=== PATIENT | female | born 1945 | race Caucasian/White ===

== ENCOUNTER 2017-05-08 09:01 | Outpatient (CLI) | payer MEDICARE ==
--- NOTE | 2017-05-08 10:26 | MMO ---
BILATERAL DIGITAL SCREENING MAMMOGRAMS: HISTORY: This 72-year-old female presents for digital screening mammography. COMPARISON: 01/28/15, 05/26/13, 05/08/12. This patient's mammogram is interpreted with the assistance of computer-aided detection. FINDINGS: Scattered areas of fibroglandular density are noted bilaterally. Stable typically benign calcificati ons. Stable left intramammary lymph node. Stable-appearing prosthesis with some fairly extensive ca lcific fibrous capsules. Focal stable outpouching of the inner aspect of the left breast prosthesis dating back to 2012. IMPRESSION: BI-RADS category 2, benign findings. Continued routine screening. POS: [facility]
== END 2017-05-08 09:02 | disposition home or self-care (01) ==
LOC: SCSMAMMO 09:01
PROVIDERS: ATTEND Family Medicine
DX: Z12.31 Encounter for screening mammogram for malignant neoplasm of breast (principal)
CPT/HCPCS: 77067

== ENCOUNTER 2018-05-19 09:18 | Outpatient (CLI) | payer MEDICARE ==
--- NOTE | 2018-05-20 08:54 | MMO ---
BILATERAL SCREENING MAMMOGRAM: HISTORY: A 73-year-old female. Routine screening mammography. History of breast augmentation. COMPARISON: 05/08/2017, 01/28/2015, 05/08/2012. TECHNIQUE: CC and MLO views of both breasts are submitted for interpretation. Images are obtained with implants present and implants displaced. FINDINGS: Breasts are composed of scattered fibroglandular tissue. Bilaterally, no suspicious dominant mass, a rchitectural distortion, or suspicious calcifications. Benign-appearing calcifications of both breas ts. Stable intramammary lymph node in the left breast. IMPRESSION: BI-RADS category 2, benign findings. RECOMMENDATION: Annual mammogram. BIRADS 2: Benign Finding(s) Routine annual screening mammography (for women over age 40) POS: [facility]
== END 2018-05-19 09:19 | disposition home or self-care (01) ==
LOC: SCSMAMMO 09:18
PROVIDERS: ATTEND Family Medicine
DX: Z12.31 Encounter for screening mammogram for malignant neoplasm of breast (principal)
CPT/HCPCS: 77067

== ENCOUNTER 2018-09-04 13:55 | Observation (INO) | payer MEDICARE ==
--- NOTE | 2018-09-04 14:36 | CT ---
Exam: Head CT without contrast HISTORY: Dizziness. Chest pain. COMPARISON: none FINDINGS: Hemorrhage: No intraparenchymal hemorrhage or extra-axial hematoma. Brain parenchyma: Cortical st-white matter differentiation is preserved. No mass effect or midline shift. Basilar cisterns are patent.Nonspecific subcortical white matter hypodensity along the right frontal centrum semiovale. No associated mass effect.. Ventricular system: Ventricles and sulci are patent and symmetric. Calvarium: Intact. Sinuses and mastoid air cells: Adequate aeration. IMPRESSION: 1. No acute intracranial process. 2. Nonspecific subcortical white matter hypodensity along the anterior left centrum semiovale. If the re is concern, nonemergent brain MRI can be performed with and without gadolinium administration.
[2018-09-04 14:45] LABS: Mean Corpuscular Hemoglobin 41.2 pg (27.0-31.0); Mean Platelet Volume 7.2 fL (7.4-10.4); Platelet Count 270 thou/uL (130-400); RBC Distribution Width 12.1 % (11.5-14.5); Red Blood Cell (RBC) Count 3.16 mill/uL (4.20-5.40); White Blood Cell (WBC) Count 7.3 thou/uL (4.8-10.8)
--- NOTE | 2018-09-04 14:56 | RAD ---
Exam: Chest one view HISTORY:Chest pain. Comparison: None. FINDINGS: Cardiac silhouette: Normal Pulmonary vessels: Normal Costophrenic angles: Clear LUNGS: No masses or consolidation. Pneumothorax: None Osseous abnormalities: None IMPRESSION: No acute cardiopulmonary process.
[2018-09-04 15:04] LABS: #Eosinphils 0.1 thou/uL (0.0-0.7); #Lymphocytes 2.3 thou/uL (1.20-3.40); #Monocytes 0.2 thou/uL (0.11-0.59); #Neutrophils 4.6 thou/uL (1.40-6.50); %Basophils 0.5 % (0.0-1.0); %Eosinophils 1.7 % (0.0-10.0); %Lymphocytes 31.7 % (21.0-51.0); %Monocytes 3.2 % (0.0-10.0); %Neutrophils 62.8 % (42.0-75.0); MDiff Complete? YES; Macrocytosis SLIGHT = 6-15 cells (100X) (0-5/hpf); Platelet Morphology Comment Appears Adequate; Poikilocytosis SLIGHT = 6-15 cells (100X) (0-5/hpf)
[2018-09-04 15:07] LABS: ALT (SGPT) 19 U/L (8-55); AST (SGOT) 20 U/L (5-34); Albumin 4.3 g/dL (3.4-4.8); Alkaline Phosphatase 84 U/L (40-150); Anion Gap 12 mmol/L (10-20); BUN (Urea Nitrogen) 23 mg/dL (9.8-20.1); Bilirubin, Total 1.1 mg/dL (0.2-1.2); Calc. Creatinine Clearance 0 mL/min (70-130); Calcium 9.6 mg/dL (7.8-10.44); Carbon Dioxide 26 mmol/L (23-31); Chloride 105 mmol/L (98-107); Estimated GFR-MDRD 80; Globulin 1.8 g/dL (2.4-3.5); Glucose 127 mg/dL (83-110); Lipase 10 U/L (8-78); Potassium 3.5 mmol/L (3.5-5.1); Protein, Total 6.1 g/dL (6.0-8.3); Sodium 139 mmol/L (136-145)
[2018-09-04] MEDS ORDERED: Aspirin Chewable 81 MG TAB ONE (17:33)
[2018-09-04 18:29] VITALS: BMI 27.4
[2018-09-04] MEDS ORDERED: Acetaminophen 325 MG TAB PO PRN (18:33)
[2018-09-04 20:05] LABS: Troponin I Less than 0.010 ng/mL (< 0.028)
[2018-09-04] MEDS ORDERED: Lisinopril/Hydrochlorothiazide 10 mg/12.5 mg Tablet PO SCH (21:00)
[2018-09-04 23:07] LABS: Troponin I Less than 0.010 ng/mL (< 0.028)
--- NOTE | 2018-09-05 02:42 | HP ---
CHIEF COMPLAINT: Low heart rate. HISTORY OF PRESENT ILLNESS: The patient is a very pleasant 73-year-old female with a history of myelodysplastic syndrome, hypertension, hypercholesterolemia, who presents to the hospital with complaints of low heart rate. The patient stated that about 3 weeks ago, she had some dental oral surgery and during that whole week her blood pressure was significantly elevated. The patient states that she does have a p.r.n. clonidine, which she uses. She has used a total of 3 of clonidine in the past 3 weeks. The patient states, however, she also has been having feelings of dizziness, nausea, confusion, fatigue and also has been noticing some gait instability. The patient initially attributed those symptoms to her myeloproliferative disease since initially she had those symptoms before she was diagnosed with her myeloproliferative disease. The patient actually did see her oncologist last on Saturday, who stated that from their standpoint, she appeared to be stable. However, was noted to have bradycardia. At this time, patient has been monitoring her heart rate and today her heart rate was 43, so she came into the ER for further evaluation. The patient also states that her symptoms have become progressively worst. The patient also states that for the past 3 or 4 months, she has been noticing whenever she goes to sleep, she can feel her heart beat is very strong, not necessarily fast; however felt very that it was very strong. The patient did not do anything about it. She just would fall asleep and then would forget about it. PAST MEDICAL HISTORY: She has a history of myeloproliferative disease, hypertension, hypercholesterolemia, depression and TIA. PAST SURGICAL HISTORY: She has had some cataract surgery. FAMILY HISTORY: Brother had cardiomyopathy and stroke. SOCIAL HISTORY: She is a former smoker. She drinks 1-2 glasses of wine a day. No drug use and she is a full code and lives by herself. REVIEW OF SYSTEMS: All negative for the ones mentioned above in HPI. PHYSICAL EXAMINATION: VITAL SIGNS: Are as of the following; temperature of 98.1, 52, 12, 94% on room air, 147/66. ALLERGIES: SHE HAS NO KNOWN DRUG ALLERGIES. MEDICATIONS: She takes: 1. Hydroxyurea. 2. Lisinopril. 3. Atorvastatin. 4. Buspirone. 5. She takes p.r.n. clonidine as needed. ASSESSMENT AND PLAN: The patient is a very pleasant 73-year-old female who presents to the hospital with complaints of bradycardia. 1. Symptomatic bradycardia could be secondary to cardiac related causes versus intrinsic versus medications. I will also check a TSH on this patient. Upon reviewing her medications, she does not seem to be on any medications that would cause bradycardia. Her EKG appears to be just sinus bradycardia. She has never really had any cardiac workup. She does have a history of hypertension, high cholesterol, anemia, and she was a former smoker. It could be in terms of something in intrinsic versus some coronary disease that could be causing her to bradycardic. At this time, I will trend her troponins. I will keep her n.p.o. after midnight. I will consult Cardiology for further evaluation. 2. Hypertension. I will continue her lisinopril. 3. History of myeloproliferative disease. I will continue her hydroxyurea. 4. History of depression. I will continue her buspirone. Thank you very much. Job ID: [id number]
[2018-09-05] MEDS: HYDROXYUREA 500 MG PO SCH ×2 (03:43→21:17)
[2018-09-05 06:02] LABS: Anion Gap 10 mmol/L (10-20); BUN (Urea Nitrogen) 20 mg/dL (9.8-20.1); Calc. Creatinine Clearance 98 mL/min (70-130); Calcium 9.1 mg/dL (7.8-10.44); Carbon Dioxide 27 mmol/L (23-31); Chloride 107 mmol/L (98-107); Estimated GFR-MDRD Greater than 90; Glucose 95 mg/dL (83-110); Potassium 3.8 mmol/L (3.5-5.1)
[2018-09-05 06:20] LABS: #Basophils 0.1 thou/uL (0.0-0.2); #Eosinphils 0.2 thou/uL (0.0-0.7); #Lymphocytes 2.7 thou/uL (1.20-3.40); #Monocytes 0.3 thou/uL (0.11-0.59); #Neutrophils 4.8 thou/uL (1.40-6.50); %Basophils 0.8 % (0.0-1.0); %Eosinophils 2.6 % (0.0-10.0); %Monocytes 4.1 % (0.0-10.0); %Neutrophils 59.5 % (42.0-75.0); Hemoglobin 12.5 g/dL (12.0-16.0); Mean Corpuscular HGB CONC 34.6 g/dL (32.0-36.0); Mean Corpuscular Hemoglobin 39.9 pg (27.0-31.0); Mean Platelet Volume 7.6 fL (7.4-10.4); Platelet Count 241 thou/uL (130-400); RBC Distribution Width 12.3 % (11.5-14.5); RBC Morphology Normal; Red Blood Cell (RBC) Count 3.13 mill/uL (4.20-5.40); White Blood Cell (WBC) Count 8.1 thou/uL (4.8-10.8)
[2018-09-05 06:27] LABS: Sodium 140 mmol/L (136-145)
--- NOTE | 2018-09-05 08:32 | MRI ---
Exam: Brain MRI without contrast HISTORY: Gait instability. Abnormal CT. COMPARISON: None FINDINGS: Calvarial marrow signal intensity: Appropriate T1 signal Gradient echo sequence: No hemorrhage Brain parenchyma: No mass, mass effect or midline shift. Brain volume, age-appropriate. Cortical st-white matter differentiation: Preserved Restricted diffusion: Central arterial flow voids are maintained. Absent restricted diffusion White matter signal intensities: T2, FLAIR white matter hyperintensities due to chronic small vessel ischemic changes. The previously noted left frontal centrum semiovale white matter hypodensity has corresponding T2 and FLAIR hyperintensity likely represent a focus of chronic small vessel ischemic c hange. Sinuses: Adequate aeration of the paranasal sinuses and mastoid air cells. IMPRESSION: 1. Absent restricted diffusion. No acute infarct 2. Chronic small vessel ischemic changes of the white matter. This MR finding corresponds to recent C T finding.
[2018-09-05] MEDS ORDERED: Bupropion 150 MG XL TAB PO SCH (09:00)
[2018-09-05] MEDS ORDERED: Lisinopril/Hydrochlorothiazide 20 mg/12.5 mg Tablet PO SCH ×2 (09:00)
[2018-09-05] MEDS ORDERED: Atorvastatin Calcium 20 MG TAB PO SCH (09:00)
[2018-09-05] MEDS: LIPITOR 20 MG PO SCH (09:43)
[2018-09-05] MEDS: Lisinopril/Hydrochlorothiazide 10 mg/12.5 mg Tablet PO SCH (09:44)
[2018-09-05] MEDS: Bupropion 150 MG SR TAB PO SCH (09:44)
[2018-09-05] MEDS: Enoxaparin Sodium 40 MG/0.4 ML SYRINGE SC SCH (09:47)
[2018-09-05] MEDS ORDERED: Ondansetron PF 4 MG/2 ML Vial IVP PRN (11:11)
--- NOTE | 2018-09-05 12:56 | CON ---
DATE OF CONSULTATION: 09/05/2018 INDICATION FOR CONSULTATION: A 73-year-old female with dizziness and bradycardia. HISTORY OF PRESENT ILLNESS: This is a very pleasant 73-year-old female, who is known to us for last 2 to 3 weeks. She has been complaining of some dizziness, occasional chest discomfort, and nausea. She was seen in the emergency room, was found to have significant bradycardia, heart rates in the 30s and 40s. She has portrayed with heart rate in the 70s at times. She describes some dull ache while she is in the emergency room, and says it is 7/10. She denied any chest pain significantly to me. She has had no history of a previous coronary artery disease that we are aware of. She also states she may have had a slight fever recently and she has been complaining of some fatigue. She did undergo some oral surgery a couple of weeks ago after being seen by the dentist, but apparently this is all resolved. She has also had blood pressure that was elevated in the 100 to 190s, but at this time is now pretty much relatively stable. Yesterday, she said she felt like she was going to pass out, but she began to become somewhat disoriented, but she did not have any mary syncopal episodes and has not had any syncope. PAST MEDICAL HISTORY: Significant for mild peripheral disease, depression, TIA, cataract surgery, anemia. She had breast augmentation and tummy tuck. She had one attempt at suicide about 35 years ago due to depression. She has a history of hypertension and hypercholesterolemia. ALLERGIES: NONE. MEDICATIONS: Include hydroxyurea, lisinopril/hydrochlorothiazide, Lipitor, buspirone, and clonidine p.r.n. as well as amlodipine. REVIEW OF SYSTEMS: A 12-point review of systems unremarkable except for what was noted in the history of present illness. PHYSICAL EXAMINATION: GENERAL: Reveals a well-developed, well-nourished female. VITAL SIGNS: Blood pressure 155/76, heart rate is anywhere between 47 up to 90, but at this time is stable in the 50s. Temperature is afebrile. Respiratory rate 16. HEENT: Reveals the head to be normocephalic and atraumatic. Carotid pulses are present. There were no bruits. No JVD. The thyroid is not enlarged. Oral mucosa is pink and moist. CHEST: Clear to auscultation. No rales, rhonchi, or wheezing. CARDIOVASCULAR: Reveals a bradycardia, but regular rhythm. I did not hear any gross murmurs, heaves, thrills, bruits, or rubs. ABDOMEN: Slightly obese. Positive bowel sounds are present. No organomegaly or masses noted. No tenderness. Femoral pulses are present. EXTREMITIES: No clubbing, cyanosis, or edema. NEUROLOGIC: She appears to be intact. SKIN: Warm and dry. LABORATORY DATA: EKG showed sinus bradycardia, heart rate is in the 44 beats per minute. Chest x-ray was unremarkable. She has also had an MRI and results are still pending. I will schedule her for an echocardiogram as well as stress testing. IMPRESSION: 1. Bradycardia, unclear whether or not this is causing her dizziness or symptoms. At this time, she still continues to have some dizziness while she was talking, her heart rate was actually in the 60s could not be an etiology for the dizziness with a heart rate in the 60s. We will also work her up to ensure that there is no other abnormality. If we have any documentation that there is any correlation between her dizziness and the bradycardia, then she would be a candidate for pacemaker insertion due to the heart rate in the 30s. 2. History of hypertension. She is slightly hypertensive at this time. We would resume her amlodipine to lower the blood pressure. 3. Hypercholesterolemia. She can continue her Lipitor. 4. History of depression. This will be dealt by the primary care service. 5. Myeloproliferative disease. However, her hemoglobin is stable. Her hemoglobin was 12.5 today with hematocrit 36. Her WBC was 8.1. Her renal function appears to be normal. Also noted in the laboratory data that her TSH was 1.25, well within normal limits. Her troponin I was unremarkable. Her BNP was only 69. We are more than happy to continue to follow the patient with you. She may eventually need to undergo pacemaker insertion. We will also have further workup prior to that. Job ID: [id number]
[2018-09-05] MEDS: Meclizine HCl 25 MG TAB PO PRN (18:41)
--- NOTE | 2018-09-05 19:52 | PRG ---
DATE OF SERVICE: 09/05/2018 SUBJECTIVE: Ms. Stokes is a 73-year-old female with past medical history significant for hypertension, myeloproliferative syndrome, and vertigo, who presented to the hospital with complaints of dizziness, fatigue, gait disturbance, and slow heart rate. The patient has been admitted with questionable symptomatic bradycardia. The patient continues to complain of some nausea post stress test. She has no chest pain or shortness of breath. She has no abdominal pain. She denies any other complaints at this time. OBJECTIVE: VITAL SIGNS: Blood pressure 116/56, pulse is 45, O2 saturation is 97% on room air. GENERAL: The patient is a mildly obese female, resting comfortably in bed, in no acute distress. HEENT: Head is atraumatic and normocephalic. Mucous membranes are moist. NECK: Trachea is midline. No obvious JVD. No lymphadenopathy. CV: S1-S2 regular rhythm, bradycardic. No ectopy. LUNGS: Regular respiratory rate and pattern. Clear to auscultation bilaterally. ABDOMEN: Positive bowel sounds. Soft, nontender. EXTREMITIES: No edema. Extremities are warm and well perfused. SKIN: Warm and dry. NEUROLOGIC: Cranial nerves 2 through 12 are grossly intact. The patient is nonfocal. LABORATORY DATA: WBC is 8.1, hemoglobin 12.5, hematocrit 36.1, platelet count is 241. Sodium 140, potassium 3.8, chloride 107, carbon dioxide 27, BUN is 20, creatinine is 0.64, GFR is 90. Serial troponin has been negative x3 BNP negative at 69. ASSESSMENT: 1. Dizziness, questionable etiology at this point, symptomatic bradycardia versus vertigo. 2. History of myeloproliferative disease, seemingly well controlled with hydroxyurea. 3. Hypertension. 4. History of transient ischemic attack. 5. Depression. PLAN: The patient has undergone a nuclear stress testing today and will have followup images tomorrow. Transthoracic echocardiogram is pending. Dr. Perez of Cardiology has been consulted and appreciate all recommendations. We will hold all beta j luis or other heart rate lowering medications. The patient's blood pressure has been well controlled. We will continue antiemetics for her nausea. The patient has requested p.r.n. meclizine, which I will add. Further recommendations based on hospital course. Continue telemetry monitoring. Job ID: [id number] [facility]
[2018-09-05] MEDS ORDERED: Regadenoson 0.4 MG/5 ML SYRINGE ONE (20:05)
--- NOTE | 2018-09-06 10:13 | NM ---
NM Cardiac Stress W EF WF History: [Abnormal EKG] Comparison: None. Findings: Stress and rest performed after the intravenous administration of 31.9 and 28 mCi technetiu m 99m sestamibi, respectively. Small apical scar. Very mild luke-infarct ischemia. Mild hypokinesia of the left ventricular apex. Calculated ejection fraction is 69%. Impression: Small apical scar with low-grade luke-infarct ischemia and mild apical hypokinesia.
[2018-09-06] MEDS: Lisinopril/Hydrochlorothiazide 10 mg/12.5 mg Tablet PO SCH (10:17)
[2018-09-06] MEDS: Bupropion 150 MG SR TAB PO SCH (10:18)
[2018-09-06] MEDS: Meclizine HCl 25 MG TAB PO PRN (10:19)
[2018-09-06] MEDS: LIPITOR 20 MG PO SCH (10:19)
[2018-09-06] MEDS: Enoxaparin Sodium 40 MG/0.4 ML SYRINGE SC SCH (10:19)
[2018-09-06] MEDS ORDERED: hydrALAZINE 20 MG/ML VIAL SLOW IVP PRN (12:20)
[2018-09-06 12:34] VITALS: BP 162/66; TEMP 98.5
--- NOTE | 2018-09-06 15:14 | EKG ---
Test Reason : Blood Pressure : / mmHG Vent. Rate : 071 BPM Atrial Rate : 071 BPM P-R Int : 154 ms QRS Dur : 090 ms QT Int : 390 ms P-R-T Axes : 057 003 058 degrees QTc Int : 423 ms Normal sinus rhythm Possible Left atrial enlargement Possible Inferior infarct , age undetermined Abnormal ECG Confirmed by JOANNE PAINTER ([id number]), sound editor JOVON SALAMANCA ([id number]) on 09/06/2018 3:13:36 PM Referred By: Confirmed By:JOANNE PAINTER
--- NOTE | 2018-09-07 01:49 | DIS ---
DATE OF ADMISSION: 09/04/2018 DATE OF DISCHARGE: 09/06/2018 CHIEF COMPLAINT ON ADMISSION: dizziness. DISCHARGE DIAGNOSES: 1. Dizziness secondary to vertigo. 2. Sinus bradycardia. 3. Myeloproliferative disease, well controlled on hydroxyurea. 4. Hypertension. 5. History of transient ischemic attack. BRIEF HOSPITAL COURSE: The patient is a 73-year-old female with past medical history significant for hypertension and vertigo, who presented to the hospital with complaints of dizziness, fatigue, gait disturbance, and slow heart rate. The patient was admitted to [facility] for further workup and treatment. ACS was ruled out in this patient. She was admitted for observation with close telemetry monitoring. She did undergo nuclear stress testing, which showed a small apical scar with low-grade luke-infarct ischemia and mild apical hypokinesia. Dr. Perez of Cardiology was consulted. Throughout her stay, when she ambulated, her heart rate did appropriately increase with ambulation and exertion. She had no symptoms of exertional dizziness or further gait disturbance. She did have some mild symptoms that were relieved with meclizine. Her echocardiogram showed normal left ventricular systolic function and mild valvular disease. After close telemetry monitoring, it was determined that although the patient did have some dizziness, that this was more consistent with vertigo , and also was completely relieved with meclizine. Her sinus bradycardia seemed to be completely asymptomatic, and permanent pacemaker implantation was not deemed indicated at this time. The patient has no complaints at that time of my interview. She denies nausea, vomiting, or any further dizziness. She has ambulated the hallways without issue. She denies chest pain and shortness of breath. She also underwent neurological testing with MRI of the brain which showed no acute infarct, old CVA, or other intracranial abnormality. DISCHARGE DISPOSITION: Home. DISCHARGE CONDITION: Stable. DISCHARGE INSTRUCTIONS AND FOLLOWUP: The patient will follow up with Dr. Perez in the next 1-2 weeks. The patient may be considered for implantable loop recorder , as well be considered for further cardiac workup with outpatient left heart catheterization. She will continue her home medications which include lisinopril, hydrochlorothiazide, and amlodipine for her hypertension, as well as hydroxyurea for her myeloproliferative disease. She will also continue baby aspirin and statin. New medication will be meclizine 25 mg one tablet p.o. t.i.d. p.r.n. dizziness. All testing and findings have been explained to the patient in detail, all questions answered. The patient will be discharged home in good condition today to follow up with her primary care provider, Dr. Gentile as well as Dr. Perez as outlined above. The patient was discharged in good condition today. Job ID: [id number] [id number]
== END 2018-09-06 15:57 | disposition home or self-care (01) ==
LOC: ERS 13:55 → ERHOLD 16:42 → 2SW 18:26
PROVIDERS: ADMIT Internal Medicine; ATTEND Internal Medicine
DX: R00.1 Bradycardia, unspecified (principal); R07.9 Chest pain, unspecified; R42 Dizziness and giddiness; C94.6 Myelodysplastic disease, not elsewhere classified; I10 Essential (primary) hypertension; E78.00 Pure hypercholesterolemia, unspecified; G45.9 Transient cerebral ischemic attack, unspecified; F32.9 Major depressive disorder, single episode, unspecified; Z87.891 Personal history of nicotine dependence; Z79.899 Other long term (current) drug therapy; Z79.82 Long term (current) use of aspirin
CPT/HCPCS: 70450; 70551; 71045; 78452; 80048; 83690; 83880; 84484 ×2; 85025; 93005 ×2; 93017; 93306; 96372; 97139 ×2; 99285; A9500; G0378; G0463; 36415; 80053; 84443; 99213; J0360; J1650; J2785; J8499

== ENCOUNTER 2024-01-08 15:43 | Inpatient (IN) | payer MEDICARE ==
[2024-01-08] MEDS ORDERED: Lisinopril 20 MG TAB ONE (16:53)
[2024-01-08 17:04] LABS: #Basophils 0.11 10x3/uL (0.0-0.2); %Basophils 0.6 % (0.0-1.0); %Eosinophils 2.7 % (0.0-10.0); %Monocytes 2.9 % (0.0-10.0); %Neutrophils 77.9 % (42.0-75.0); Hematocrit 40.2 % (36.0-47.0); Hemoglobin 13.7 g/dL (12.0-16.0); Mean Corpuscular HGB CONC 34.1 g/dL (32.0-36.0); Mean Corpuscular Hemoglobin 31.6 pg (27.0-31.0); Mean Corpuscular Volume 92.8 fL (78.0-98.0); Mean Platelet Volume 11.1 fL (7.4-10.4); Platelet Count 380 10x3/uL (130-400); RBC Distribution Width 13.4 % (11.5-14.5); Red Blood Cell (RBC) Count 4.33 mill/uL (4.20-5.40)
[2024-01-08 17:17] LABS: Magnesium 1.8 mg/dL (1.6-2.6); PTT 33.4 sec (22.9-36.1); Prothrombin Time 13.6 sec (12.0-14.7)
[2024-01-08 17:18] LABS: ALT (SGPT) 15 U/L (8-55); AST (SGOT) 21 U/L (5-34); Acetaminophen Less than 10 mcg/mL (Less than 10); Albumin 4.1 g/dL (3.4-4.8); Alcohol Less than 10.0 mg/dL (Less than 10); Alkaline Phosphatase 104 U/L (40-110); Anion Gap 12 mmol/L (10-20); BUN (Urea Nitrogen) 17 mg/dL (9.8-20.1); Bilirubin, Total 1.2 mg/dL (0.2-1.2); Calc. Creatinine Clearance 0 mL/min (70-130); Calcium 11.2 mg/dL (7.8-10.44); Carbon Dioxide 27 mmol/L (23-31); Chloride 105 mmol/L (98-107); Estimated GFR 90; Globulin 2.2 g/dL (2.4-3.5); Glucose 101 mg/dL (83-110); Potassium 3.5 mmol/L (3.5-5.1); Protein, Total 6.3 g/dL (5.8-8.1); Salicylate Less than 8.0 mg/dL (Less than 8.0); Sodium 140 mmol/L (136-145)
[2024-01-08 17:23] LABS: Troponin I 0.035 ng/mL (< 0.028)
[2024-01-08] MEDS ORDERED: hydrALAZINE 20 MG/ML VIAL ONE ×2 (18:23→19:09)
[2024-01-08 19:01] LABS: Bacteria/HPF None Seen HPF (None Seen); Bilirubin Negative (Negative); Blood, Urine Negative (Negative); CAUTI Indications for Culture Alt mental st,lethar; Clarity Clear (Clear); Glucose, Urine (Dipstick) Normal (Negative); Ketone, Urine 40 mg/dL (Negative); Leukocyte 75 Leu/uL (Negative); Nitrite Negative (Negative); Protein, Urine (Dipstick) Negative (Neg-Trace); RBC/HPF 0-3 HPF (0-3); Specific Gravity, Urine 1.011 (1.002-1.036); Squamous Epithelial 0-3 HPF (0-3); Urobilinogen Normal mg/dL (Less than 2); pH, Urine 6.5 (5.0-9.0)
[2024-01-08 19:04] LABS: Urine Culture Reflex No No
[2024-01-08 19:05] LABS: Amphetamine Not Detected (NotDetected); Barbiturates Screen Not Detected (NotDetected); Benzodiazepine Screen Not Detected (NotDetected); Cocaine Metabolite Screen Not Detected (NotDetected); Methadone Not Detected (NotDetected); Methamphetamine Not Detected (NotDetected); Opiate Screen Not Detected (NotDetected); Oxycodone Screen Not Detected (NotDetected); Phencyclidine (PCP) Not Detected (NotDetected); THC/Cannabinoid Screen Not Detected (NotDetected); Tricyclic Screen Not Detected (NotDetected)
[2024-01-08] MEDS ORDERED: Aspirin Chewable 81 MG TAB ONE ×2 (19:08→19:09)
[2024-01-08] MEDS ORDERED: Acetaminophen 650 MG Suppository PR PRN (19:48)
[2024-01-08] MEDS ORDERED: Ketorolac Tromethamine 30 MG (1 mL) VIAL ONE ×2 (20:34→21:17)
[2024-01-08 22:33] LABS: Troponin I 0.062 ng/mL (< 0.028)
[2024-01-08 23:23] VITALS: BMI 24.3
[2024-01-08] MEDS: Acetaminophen 325 MG TAB PO PRN (23:47)
[2024-01-08] MEDS: Lisinopril 10 MG TAB PO SCH (23:53)
[2024-01-08] MEDS: Atorvastatin Calcium 40 MG TAB PO SCH (23:54)
[2024-01-09 02:47] LABS: Troponin I 0.066 ng/mL (< 0.028)
[2024-01-09 06:35] LABS: #Basophils 0.13 10x3/uL (0.0-0.2); %Basophils 0.8 % (0.0-1.0); %Eosinophils 2.7 % (0.0-10.0); %Lymphocytes 15.5 % (21.0-51.0); %Monocytes 3.7 % (0.0-10.0); %Neutrophils 75.9 % (42.0-75.0); Hematocrit 39.1 % (36.0-47.0); Hemoglobin 12.8 g/dL (12.0-16.0); Mean Corpuscular HGB CONC 32.7 g/dL (32.0-36.0); Mean Corpuscular Hemoglobin 31.7 pg (27.0-31.0); Mean Corpuscular Volume 96.8 fL (78.0-98.0); Platelet Count 344 10x3/uL (130-400); RBC Distribution Width 13.5 % (11.5-14.5); Red Blood Cell (RBC) Count 4.04 mill/uL (4.20-5.40)
[2024-01-09 07:02] LABS: Anion Gap 12 mmol/L (10-20); BUN (Urea Nitrogen) 18 mg/dL (9.8-20.1); Calc. Creatinine Clearance 66 mL/min (70-130); Carbon Dioxide 27 mmol/L (23-31); Cardiac Risk 3.1 (Less than 4.5); Chloride 105 mmol/L (98-107); Cholesterol 113 mg/dl (< 200 Desired); Estimated GFR 79; Glucose 90 mg/dL (83-110); HDL Cholesterol 37 mg/dL (>60 Neg Risk); LDL Cholesterol, Calculated 55 mg/dL; Potassium 3.5 mmol/L (3.5-5.1); Sodium 140 mmol/L (136-145); Triglycerides 104 mg/dL (Less than 150)
[2024-01-09] MEDS: Hydrochlorothiazide 25 MG TAB PO SCH ×2 (09:31→20:46)
[2024-01-09] MEDS: Lisinopril 10 MG TAB PO SCH ×2 (09:31→20:46)
[2024-01-09] MEDS: Enoxaparin 40 MG (0.4 mL) SYRINGE SC SCH (09:31)
[2024-01-09] MEDS: Aspirin 81 mg Enteric Coated Tablet PO SCH (09:31)
[2024-01-09 09:47] LABS: Troponin I 0.056 ng/mL (< 0.028)
[2024-01-09] MEDS: Ondansetron ODT 4 MG TAB PO PRN (17:11)
[2024-01-09] MEDS: CeleCOXIB 100 MG CAP PO SCH (20:45)
[2024-01-09] MEDS: Acetaminophen 500 MG TAB PO PRN (23:58)
[2024-01-09] MEDS: Melatonin 3 MG TAB PO PRN (23:58)
[2024-01-10 05:31] LABS: #Basophils 0.14 10x3/uL (0.0-0.2); %Basophils 0.9 % (0.0-1.0); %Eosinophils 3.7 % (0.0-10.0); %Lymphocytes 14.8 % (21.0-51.0); %Monocytes 3.4 % (0.0-10.0); %Neutrophils 76.6 % (42.0-75.0); Hematocrit 37.9 % (36.0-47.0); Hemoglobin 12.2 g/dL (12.0-16.0); Mean Corpuscular HGB CONC 32.2 g/dL (32.0-36.0); Mean Corpuscular Hemoglobin 31.3 pg (27.0-31.0); Mean Corpuscular Volume 97.2 fL (78.0-98.0); Mean Platelet Volume 11.2 fL (7.4-10.4); Platelet Count 351 10x3/uL (130-400); RBC Distribution Width 13.7 % (11.5-14.5)
[2024-01-10 05:49] LABS: ALT (SGPT) 15 U/L (8-55); AST (SGOT) 19 U/L (5-34); Albumin 3.4 g/dL (3.4-4.8); Alkaline Phosphatase 86 U/L (40-110); Anion Gap 9 mmol/L (10-20); BUN (Urea Nitrogen) 23 mg/dL (9.8-20.1); Bilirubin, Total 0.8 mg/dL (0.2-1.2); Calc. Creatinine Clearance 72 mL/min (70-130); Calcium 9.2 mg/dL (7.8-10.44); Carbon Dioxide 29 mmol/L (23-31); Chloride 104 mmol/L (98-107); Estimated GFR 87; Gamma GT (GGT) 19 U/L (9-36); Globulin 1.7 g/dL (2.4-3.5); Glucose 90 mg/dL (83-110); Potassium 3.9 mmol/L (3.5-5.1); Protein, Total 5.1 g/dL (5.8-8.1); Sodium 138 mmol/L (136-145)
[2024-01-10] MEDS: Bupropion 150 MG SR.TAB PO SCH (08:43)
[2024-01-10 11:11] LABS: Syphilis Antibody Nonreactive (Nonreactive); Syphilis Antibody Index 0.02 S/CO (<1.00 Non-Reactive)
[2024-01-10] MEDS ORDERED: Amlodipine 5 MG TAB PO SCH (13:00)
[2024-01-10] MEDS: Amlodipine 5 MG TAB PO SCH (13:12)
[2024-01-11] MEDS: Ondansetron PF 4 MG/2 ML Vial IVP PRN (08:06)
[2024-01-11] MEDS: Amlodipine 5 MG TAB PO SCH (08:09)
[2024-01-11] MEDS: Anagrelide HCl 0.5 MG CAP PO SCH (20:48)
[2024-01-11] MEDS: Lisinopril 20 MG TAB PO SCH (20:51)
[2024-01-12 06:06] LABS: #Basophils 0.18 10x3/uL (0.0-0.2); %Basophils 1.2 % (0.0-1.0); %Eosinophils 4.4 % (0.0-10.0); %Lymphocytes 17.4 % (21.0-51.0); %Monocytes 4.2 % (0.0-10.0); %Neutrophils 72.1 % (42.0-75.0); Hematocrit 40.3 % (36.0-47.0); Hemoglobin 12.9 g/dL (12.0-16.0); Mean Corpuscular Hemoglobin 31.3 pg (27.0-31.0); Mean Corpuscular Volume 97.8 fL (78.0-98.0); Mean Platelet Volume 11.3 fL (7.4-10.4); Platelet Count 509 10x3/uL (130-400); RBC Distribution Width 13.7 % (11.5-14.5); Red Blood Cell (RBC) Count 4.12 mill/uL (4.20-5.40)
[2024-01-12 06:32] LABS: Anion Gap 11 mmol/L (10-20); BUN (Urea Nitrogen) 17 mg/dL (9.8-20.1); Calc. Creatinine Clearance 78 mL/min (70-130); Calcium 9.5 mg/dL (7.8-10.44); Carbon Dioxide 28 mmol/L (23-31); Chloride 103 mmol/L (98-107); Estimated GFR 91; Glucose 87 mg/dL (83-110); Magnesium 1.9 mg/dL (1.6-2.6); Sodium 138 mmol/L (136-145)
[2024-01-12] MEDS: Atorvastatin Calcium 20 MG TAB PO SCH (08:08)
[2024-01-13 04:58] LABS: Anion Gap 10 mmol/L (10-20); BUN (Urea Nitrogen) 21 mg/dL (9.8-20.1); Calc. Creatinine Clearance 83 mL/min (70-130); Calcium 9.3 mg/dL (7.8-10.44); Carbon Dioxide 25 mmol/L (23-31); Chloride 106 mmol/L (98-107); Estimated GFR 92; Glucose 92 mg/dL (83-110); Hematocrit 39.2 % (36.0-47.0); Hemoglobin 12.8 g/dL (12.0-16.0); Magnesium 1.8 mg/dL (1.6-2.6); Mean Corpuscular HGB CONC 32.7 g/dL (32.0-36.0); Mean Corpuscular Hemoglobin 31.1 pg (27.0-31.0); Mean Corpuscular Volume 95.1 fL (78.0-98.0); Mean Platelet Volume 11.2 fL (7.4-10.4); Platelet Count 572 10x3/uL (130-400); RBC Distribution Width 13.7 % (11.5-14.5); Red Blood Cell (RBC) Count 4.12 mill/uL (4.20-5.40); Sodium 137 mmol/L (136-145)
[2024-01-13 05:25] LABS: Anisocytosis SLIGHT = 6-15 cells HPF (0-5); Burr Cells SLIGHT = 2-5 cells HPF (0-1); Eosinophils 3 % (0-10); Large Platelets 12.1 % (0-5); Lymphocytes 8 % (21-51); Monocytes 3 % (0-10); Neutrophil 86 % (42-75); Ovalocytes SLIGHT = 2-5 cells HPF (0-1); Platelet Adequacy Comment Platelets Increased; Polychromasia SLIGHT = 2-3 cells HPF (0-2)
[2024-01-13] MEDS ORDERED: Regadenoson 0.4 MG/5 ML SYRINGE ONE (09:53)
[2024-01-13] MEDS: Amlodipine 10 MG TAB PO SCH (11:56)
[2024-01-13 14:09] VITALS: TEMP 98.3
[2024-01-13 16:05] VITALS: BP 156/80
== END 2024-01-13 18:30 | disposition home or self-care (01) | DRG 78 ==
LOC: ERS 15:43 → SUATTDRO 15:43 → ERHOLD 19:42 → T4-A 22:32 → OBSVTOIN 01-10 15:48
PROVIDERS: ADMIT Family Medicine; ATTEND Family Medicine
PROC: 4A00X4Z Measurement of Central Nervous Electrical Activity, External Approach (ICD-10-PCS; principal; 2024-01-09)
DX: I67.4 Hypertensive encephalopathy (principal); D47.1 Chronic myeloproliferative disease; I24.89 Other forms of acute ischemic heart disease; I10 Essential (primary) hypertension; D75.1 Secondary polycythemia; F32.A Depression, unspecified; R00.1 Bradycardia, unspecified; Z87.891 Personal history of nicotine dependence; Z88.0 Allergy status to penicillin; Z88.5 Allergy status to narcotic agent; Z88.1 Allergy status to other antibiotic agents; Z79.899 Other long term (current) drug therapy
CPT/HCPCS: 36415; 36416; 70450; 70551; 71045; 78452; 80048; 80053; 80061; 80306; 80307; 81001; 82607; 82977; 83615; 83735; 83880; 84443; 84484; 84550; 85025; 85610; 85730; 86780; 87040; 93005; 93010; 93017; 93306; 95700; 95711; 95957; 96372; 96374; 96375; 96376; A9500; G0378; J0360; J1650; J1885; J2405; J2785; Q0162

== ENCOUNTER 2024-04-13 10:15 | Outpatient (CLI) | payer MEDICARE | END 2024-04-13 10:16 | disposition home or self-care (01) | LOC: SCSRAD 10:15 | PROVIDERS: ATTEND Family Medicine | DX: M54.50 Low back pain, unspecified (principal); K59.00 Constipation, unspecified; M43.8X6 Other specified deforming dorsopathies, lumbar region; M16.11 Unilateral primary osteoarthritis, right hip; R19.5 Other fecal abnormalities | CPT/HCPCS: 72100; 72170; 74019 ==

== ENCOUNTER 2024-04-13 13:06 | Inpatient (IN) | payer MEDICARE ==
[~2024-04-13 13:06] MED LIST: Iopamidol-370 76% 500 ML MDV (1 ML CHARGE) ONE; Magnevist 469MG/ML 20 ML VIAL ONE
[2024-04-13 15:08] LABS: #Basophils 0.17 10x3/uL (0.0-0.2); %Basophils 0.8 % (0.0-1.0); %Eosinophils 2.5 % (0.0-10.0); %Lymphocytes 13.3 % (21.0-51.0); %Monocytes 4.1 % (0.0-10.0); %Neutrophils 78.5 % (42.0-75.0); Hematocrit 39.9 % (36.0-47.0); Hemoglobin 13.4 g/dL (12.0-16.0); Mean Corpuscular HGB CONC 33.6 g/dL (32.0-36.0); Mean Corpuscular Hemoglobin 28.6 pg (27.0-31.0); Mean Corpuscular Volume 85.3 fL (78.0-98.0); Mean Platelet Volume 10.5 fL (7.4-10.4); Platelet Count 668 10x3/uL (130-400); RBC Distribution Width 15.9 % (11.5-14.5); Red Blood Cell (RBC) Count 4.68 mill/uL (4.20-5.40)
[2024-04-13 15:31] LABS: ALT (SGPT) 17 U/L (8-55); AST (SGOT) 23 U/L (5-34); Albumin 3.5 g/dL (3.4-4.8); Alkaline Phosphatase 116 U/L (40-110); Anion Gap 14 mmol/L (10-20); BUN (Urea Nitrogen) 31 mg/dL (9.8-20.1); Calc. Creatinine Clearance 0 mL/min (70-130); Calcium 9.7 mg/dL (7.8-10.44); Carbon Dioxide 27 mmol/L (23-31); Chloride 90 mmol/L (98-107); Estimated GFR 89; Globulin 2.8 g/dL (2.4-3.5); Glucose 99 mg/dL (83-110); Protein, Total 6.3 g/dL (5.8-8.1); Sodium 126 mmol/L (136-145)
[2024-04-13] MEDS ORDERED: Ondansetron PF 4 MG/2 ML Vial ONE (15:57)
[2024-04-13 18:11] LABS: Bacteria/HPF None Seen HPF (None Seen); Bilirubin Negative (Negative); Blood, Urine Negative (Negative); CAUTI Indications for Culture Pelvic or flank pain; Clarity Clear (Clear); Glucose, Urine (Dipstick) Normal (Negative); Ketone, Urine 10 mg/dL (Negative); Leukocyte Negative Leu/uL (Negative); Nitrite Negative (Negative); Protein, Urine (Dipstick) Negative (Neg-Trace); RBC/HPF 0-3 HPF (0-3); Specific Gravity, Urine 1.026 (1.002-1.036); Squamous Epithelial None Seen HPF (0-3); Urobilinogen Normal mg/dL (Less than 2); WBC/HPF 0-3 HPF (0-3)
[2024-04-13 18:15] LABS: Urine Culture Reflex No No
[2024-04-13] MEDS ORDERED: fentaNYL 50 mcg/mL 1 mL Vial ONE (18:17)
[2024-04-13] MEDS ORDERED: CeleCOXIB 100 MG CAP PO PRN (23:20)
[2024-04-13] MEDS ORDERED: Ondansetron PF 4 MG/2 ML Vial IVP PRN (23:21)
[2024-04-13] MEDS ORDERED: Prochlorperazine Maleate 5 MG TAB PO PRN (23:31)
[2024-04-14] MEDS: Sodium Chloride 0.9% 1,000 ML IV SCH (01:14)
[2024-04-14 02:12] VITALS: BMI 25.8
[2024-04-14] MEDS: Ketorolac Tromethamine 30 MG (1 mL) VIAL IVP PRN (03:54)
[2024-04-14 05:21] LABS: #Basophils 0.17 10x3/uL (0.0-0.2); %Basophils 0.8 % (0.0-1.0); %Lymphocytes 13.5 % (21.0-51.0); %Monocytes 3.5 % (0.0-10.0); %Neutrophils 79.4 % (42.0-75.0); Hematocrit 40.4 % (36.0-47.0); Hemoglobin 13.4 g/dL (12.0-16.0); Mean Corpuscular HGB CONC 33.2 g/dL (32.0-36.0); Mean Corpuscular Hemoglobin 28.5 pg (27.0-31.0); Mean Corpuscular Volume 85.8 fL (78.0-98.0); Mean Platelet Volume 10.8 fL (7.4-10.4); Platelet Count 642 10x3/uL (130-400); RBC Distribution Width 15.8 % (11.5-14.5); Red Blood Cell (RBC) Count 4.71 mill/uL (4.20-5.40)
[2024-04-14 05:46] LABS: Anion Gap 11 mmol/L (10-20); BUN (Urea Nitrogen) 21 mg/dL (9.8-20.1); Calc. Creatinine Clearance 95 mL/min (70-130); Calcium 9.3 mg/dL (7.8-10.44); Carbon Dioxide 26 mmol/L (23-31); Chloride 96 mmol/L (98-107); Estimated GFR 94; Glucose 97 mg/dL (83-110); Potassium 4.4 mmol/L (3.5-5.1); Sodium 129 mmol/L (136-145)
[2024-04-14] MEDS: Amlodipine 10 MG TAB PO SCH (08:03)
[2024-04-14] MEDS: Atorvastatin Calcium 20 MG TAB PO SCH (08:03)
[2024-04-14] MEDS: Bupropion 150 MG SR.TAB PO SCH (08:03)
[2024-04-14] MEDS: Senokot S 8.6-50 MG TAB PO SCH (08:03)
[2024-04-14] MEDS: traMADol HCl 50 MG TAB PO PRN (08:05)
[2024-04-14] MEDS ORDERED: Baclofen 10 MG TAB PO PRN (08:46)
[2024-04-14] MEDS: Lisinopril 20 MG TAB PO SCH (09:25)
[2024-04-14] MEDS: Anagrelide HCl 0.5 MG CAP PO SCH (09:25)
[2024-04-14] MEDS: Famotidine 20 MG TAB PO SCH (09:25)
[2024-04-15 05:31] LABS: Hematocrit 42.6 % (36.0-47.0); Hemoglobin 14.2 g/dL (12.0-16.0); Mean Corpuscular HGB CONC 33.3 g/dL (32.0-36.0); Mean Corpuscular Hemoglobin 28.6 pg (27.0-31.0); Mean Corpuscular Volume 85.9 fL (78.0-98.0); Mean Platelet Volume 10.4 fL (7.4-10.4); Platelet Count 720 10x3/uL (130-400); RBC Distribution Width 15.8 % (11.5-14.5); Red Blood Cell (RBC) Count 4.96 mill/uL (4.20-5.40)
[2024-04-15 06:29] LABS: Anion Gap 15 mmol/L (10-20); BUN (Urea Nitrogen) 12 mg/dL (9.8-20.1); Calc. Creatinine Clearance 126 mL/min (70-130); Calcium 8.8 mg/dL (7.8-10.44); Carbon Dioxide 20 mmol/L (23-31); Chloride 98 mmol/L (98-107); Estimated GFR 100; Glucose 96 mg/dL (83-110); Potassium 3.9 mmol/L (3.5-5.1); Sodium 129 mmol/L (136-145)
[2024-04-15] MEDS: Acetaminophen 325 MG TAB PO PRN (14:25)
[2024-04-15 15:31] LABS: Anion Gap 12 mmol/L (10-20); BUN (Urea Nitrogen) 14 mg/dL (9.8-20.1); Calc. Creatinine Clearance 108 mL/min (70-130); Carbon Dioxide 23 mmol/L (23-31); Chloride 95 mmol/L (98-107); Estimated GFR 97; Glucose 172 mg/dL (83-110); Sodium 126 mmol/L (136-145)
[2024-04-15] MEDS: Lorazepam 2 MG/ML VIAL SLOW IVP SCH (21:43)
[2024-04-16 07:33] LABS: #Basophils 0.24 10x3/uL (0.0-0.2); %Basophils 1.2 % (0.0-1.0); %Eosinophils 2.8 % (0.0-10.0); %Lymphocytes 15.5 % (21.0-51.0); %Monocytes 3.8 % (0.0-10.0); %Neutrophils 75.7 % (42.0-75.0); Hematocrit 39.9 % (36.0-47.0); Hemoglobin 13.5 g/dL (12.0-16.0); Mean Corpuscular HGB CONC 33.8 g/dL (32.0-36.0); Mean Corpuscular Hemoglobin 28.5 pg (27.0-31.0); Mean Corpuscular Volume 84.2 fL (78.0-98.0); Mean Platelet Volume 10.4 fL (7.4-10.4); Platelet Count 770 10x3/uL (130-400); RBC Distribution Width 15.7 % (11.5-14.5); Red Blood Cell (RBC) Count 4.74 mill/uL (4.20-5.40)
[2024-04-16 07:57] LABS: Anion Gap 10 mmol/L (10-20); BUN (Urea Nitrogen) 13 mg/dL (9.8-20.1); Calc. Creatinine Clearance 120 mL/min (70-130); Calcium 8.9 mg/dL (7.8-10.44); Carbon Dioxide 25 mmol/L (23-31); Chloride 97 mmol/L (98-107); Estimated GFR 99; Glucose 85 mg/dL (83-110); Potassium 3.8 mmol/L (3.5-5.1); Sodium 128 mmol/L (136-145)
[2024-04-16] MEDS: Melatonin 3 MG TAB PO PRN (19:39)
[2024-04-17 10:09] LABS: Anion Gap 12 mmol/L (10-20); BUN (Urea Nitrogen) 16 mg/dL (9.8-20.1); Calc. Creatinine Clearance 95 mL/min (70-130); Calcium 9.4 mg/dL (7.8-10.44); Carbon Dioxide 26 mmol/L (23-31); Chloride 97 mmol/L (98-107); Estimated GFR 94; Glucose 97 mg/dL (83-110); Potassium 3.9 mmol/L (3.5-5.1); Sodium 131 mmol/L (136-145)
[2024-04-17 15:58] VITALS: BP 131/70; TEMP 98.7
== END 2024-04-17 18:19 | disposition short-term general hospital (02) | DRG 552 ==
LOC: ERS 13:06 → SURG B 04-14 00:08 → OBSVTOIN 04-14 08:12
PROVIDERS: ADMIT Internal Medicine; ATTEND Internal Medicine
DX: S32.011A Stable burst fracture of first lumbar vertebra, initial encounter for closed fracture (principal); D47.1 Chronic myeloproliferative disease; E87.1 Hypo-osmolality and hyponatremia; G93.40 Encephalopathy, unspecified; I10 Essential (primary) hypertension; R33.9 Retention of urine, unspecified; E78.5 Hyperlipidemia, unspecified; F32.A Depression, unspecified; F10.90 Alcohol use, unspecified, uncomplicated; Z86.73 Personal history of transient ischemic attack (TIA), and cerebral infarction without residual deficits; Z87.891 Personal history of nicotine dependence; Z79.899 Other long term (current) drug therapy; Z88.1 Allergy status to other antibiotic agents; Z88.0 Allergy status to penicillin; Z88.8 Allergy status to other drugs, medicaments and biological substances
CPT/HCPCS: 36415; 51702; 70450; 70551; 72100; 72157; 72158; 72170; 74019; 74177; 80048; 80053; 81001; 82140; 83930; 83935; 84300; 85025; 85027; 93005; 94760; 95700; 95711; 95957; 96374; 96375; G0378; J1885; J2060; J2405; J3010; J7030; Q9967

== ENCOUNTER 2025-01-31 07:22 | Inpatient (IN) | payer MEDICARE ==
[2025-01-31 08:41] LABS: Bacteria/HPF None Seen HPF (None Seen); CAUTI Indications for Culture Alt mental st,lethar; Glucose, Urine (Dipstick) 300 mg/dL (Negative); Leukocyte 500 Leu/uL (Negative); Protein, Urine (Dipstick) 30 mg/dL (Neg-Trace); Specific Gravity, Urine 1.018 (1.002-1.036); WBC/HPF Greater than 50 HPF (0-3); Yeast-Budding 2+ HPF (None Seen)
[2025-01-31 08:49] LABS: Urine Culture Reflex Yes Yes
[2025-01-31 08:49] LABS: #Basophils 0.23 10x3/uL (0.0-0.2); #Eosinophils 0.66 10x3/uL (0.0-0.7); #Monocytes 0.64 10x3/uL (0.11-0.59); #Neutrophils 20.58 10x3/uL (1.40-6.50); %Basophils 0.9 % (0.0-1.0); %Eosinophils 2.7 % (0.0-10.0); %Lymphocytes 9.2 % (21.0-51.0); %Monocytes 2.6 % (0.0-10.0); %Neutrophils 83.4 % (42.0-75.0); Hematocrit 40.0 % (36.0-47.0); Hemoglobin 13.1 g/dL (12.0-16.0); Mean Corpuscular Hemoglobin 27.3 pg (27.0-31.0); Mean Corpuscular Volume 83.3 fL (78.0-98.0); Platelet Count 287 10x3/uL (130-400); Red Blood Cell (RBC) Count 4.80 mill/uL (4.20-5.40); White Blood Cell (WBC) Count 24.68 10x3/uL (4.8-10.8)
[2025-01-31 08:59] LABS: Actual Bicarbonate (HCO3v) 15.6 mEq/L (22-28); Base Excess -7.0 mEq/L (-2.0 to +3.0); Calcium, Ionized (venous) 1.13 mmol/L (1.16-1.32); Chloride (VBG) 105 mmol/L (98-106); Hematocrit-VBG 41 % (36.0-47.0); Hemoglobin (Hb) 14.0 g/dL (11.7-16.1); Potassium (VBG) 4.18 mmol/L (3.70-5.30); Sodium 136 mmol/L (133-146)
[2025-01-31 09:05] LABS: ALT (SGPT) 17 U/L (Less than 34); AST (SGOT) 34 U/L (11-34); Albumin 3.4 g/dL (3.1-4.5); Alkaline Phosphatase 120 U/L (40-110); Anion Gap 17 mmol/L (10-20); BUN (Urea Nitrogen) 18 mg/dL (9.8-20.1); Bilirubin, Total 1.2 mg/dL (0.3-1.2); Calc. Creatinine Clearance 0 mL/min (70-130); Calcium 9.1 mg/dL (7.8-10.44); Carbon Dioxide 17 mmol/L (23-31); Chloride 106 mmol/L (98-107); Globulin 2.4 g/dL (2.4-3.5); Glucose 88 mg/dL (83-110); Potassium 4.0 mmol/L (3.5-5.1); Sodium 136 mmol/L (136-145)
[2025-01-31] MEDS ORDERED: Ondansetron PF 4 MG/2 ML Vial IVP PRN (10:58)
[2025-01-31] MEDS ORDERED: Senokot S 8.6-50 MG TAB PO PRN (10:58)
[2025-01-31] MEDS ORDERED: Vancomycin 1 GM in Premix 1 BAG IVPB SCH (11:00)
[2025-01-31] MEDS: Vancomycin 1.5 GM / NS 500ML VIAL-2-BAG IVPB SCH (12:35)
[2025-01-31 13:27] VITALS: BMI 21.6
[2025-01-31] MEDS ORDERED: hydrALAZINE 20 MG/ML VIAL SLOW IVP PRN (17:11)
[2025-01-31] MEDS: cefTRIAXone\\ROCEPHIN 1 GM in Sodium Chloride 0.9% 100 ML IVPB SCH (17:31)
[2025-01-31] MEDS: Aspirin 81 mg Enteric Coated Tablet PO SCH (17:31)
[2025-01-31 18:57] LABS: Bacteria/HPF None Seen HPF (None Seen); CAUTI Indications for Culture Alt mental st,lethar; Glucose, Urine (Dipstick) 70 mg/dL (Negative); Leukocyte 500 Leu/uL (Negative); Protein, Urine (Dipstick) 100 mg/dL (Neg-Trace); RBC/HPF 21-50 HPF (0-3); Specific Gravity, Urine 1.021 (1.002-1.036); WBC/HPF Greater than 50 HPF (0-3); Yeast-Budding 2+ HPF (None Seen)
[2025-01-31] MEDS: Vancomycin 1 GM Premix Bag IVPB SCH (22:00)
[2025-02-01 04:56] LABS: Anion Gap 14 mmol/L (10-20); BUN (Urea Nitrogen) 17 mg/dL (9.8-20.1); Calc. Creatinine Clearance 72 mL/min (70-130); Calcium 8.9 mg/dL (7.8-10.44); Carbon Dioxide 18 mmol/L (23-31); Cardiac Risk 5.2 (Less than 4.5); Chloride 110 mmol/L (98-107); Cholesterol 131 mg/dl (< 200 Desired); Glucose 89 mg/dL (83-110); HDL Cholesterol 25 mg/dL (>60 Neg Risk); LDL Cholesterol, Calculated 85 mg/dL; Potassium 3.7 mmol/L (3.5-5.1); Sodium 138 mmol/L (136-145); Triglycerides 107 mg/dL (Less than 150)
[2025-02-01 04:59] LABS: Vancomycin, Random 22.2 ug/mL (See Comment)
[2025-02-01 05:04] LABS: Hematocrit 38.8 % (36.0-47.0); Hemoglobin 12.5 g/dL (12.0-16.0); Mean Corpuscular Hemoglobin 27.1 pg (27.0-31.0); Mean Corpuscular Volume 84.2 fL (78.0-98.0); Platelet Count 280 10x3/uL (130-400); Red Blood Cell (RBC) Count 4.61 mill/uL (4.20-5.40); White Blood Cell (WBC) Count 25.39 10x3/uL (4.8-10.8)
[2025-02-01 06:18] LABS: Anisocytosis SLIGHT = 6-15 cells HPF (0-5); Burr Cells SLIGHT = 2-5 cells HPF (0-1); Macrocytosis SLIGHT = 6-15 cells HPF (0-5); Ovalocytes SLIGHT = 2-5 cells HPF (0-1); Platelet Adequacy Comment Platelets Normal; Polychromasia SLIGHT = 2-3 cells HPF (0-2); Schistocytes SLIGHT = 2-5 cells HPF (0-1); Smudge Cells 4.0 %
[2025-02-01] MEDS: Aspirin 81 mg Enteric Coated Tablet PO SCH (09:41)
[2025-02-01] MEDS ORDERED: Senokot S 8.6-50 MG TAB PO SCH (21:00)
[2025-02-01] MEDS: Carvedilol 3.125 MG TAB PO SCH (22:10)
[2025-02-01] MEDS: Apixaban 2.5 MG TAB PO SCH (22:10)
[2025-02-01] MEDS: Spironolactone 25 MG TAB PO SCH (22:11)
[2025-02-01] MEDS: Ferrous Sulfate 325 MG TAB PO SCH (22:12)
[2025-02-01] MEDS: Bupropion 150 MG SR.TAB PO SCH (22:12)
[2025-02-02 04:30] LABS: Anion Gap 11 mmol/L (10-20); BUN (Urea Nitrogen) 21 mg/dL (9.8-20.1); Calc. Creatinine Clearance 62 mL/min (70-130); Calcium 9.0 mg/dL (7.8-10.44); Carbon Dioxide 21 mmol/L (23-31); Chloride 111 mmol/L (98-107); Glucose 96 mg/dL (83-110); Potassium 3.9 mmol/L (3.5-5.1); Sodium 139 mmol/L (136-145)
[2025-02-02 04:35] LABS: Hematocrit 38.1 % (36.0-47.0); Hemoglobin 12.1 g/dL (12.0-16.0); Mean Corpuscular Hemoglobin 27.2 pg (27.0-31.0); Mean Corpuscular Volume 85.6 fL (78.0-98.0); Platelet Count 314 10x3/uL (130-400); Red Blood Cell (RBC) Count 4.45 mill/uL (4.20-5.40); White Blood Cell (WBC) Count 26.90 10x3/uL (4.8-10.8)
[2025-02-02 05:18] LABS: Platelet Adequacy Comment Platelets Normal; Polychromasia SLIGHT = 2-3 cells HPF (0-2); Smudge Cells 5.0 %
[2025-02-02 08:04] VITALS: BMI 21.6
[2025-02-02] MEDS: Dapagliflozin Propanediol 10 MG TAB PO SCH (08:59)
[2025-02-02] MEDS: Cyanocobalamin (Vitamin B-12) 1,000 MCG TAB PO SCH (09:00)
[2025-02-02] MEDS: Fluconazole 100 MG TAB PO SCH (11:36)
[2025-02-02] MEDS: PNEUMOC 20-VAL CONJ-DIP CRM/PF 0.5 ML SYRINGE IM ONE (13:05)
[2025-02-02 13:57] LABS: Campy jejuni + coli by PCR Negative (Negative); STEC Shiga Toxin 1+2 Negative (Negative); Salmonella spp. by PCR Negative (Negative); Shigella spp + EIEC by PCR Negative (Negative)
[2025-02-02] MEDS: Acetaminophen 325 MG TAB PO PRN (18:20)
[2025-02-03] MEDS: QUEtiapine 25 MG TAB PO SCH (00:13)
[2025-02-03] MEDS: Vancomycin HCl 500 MG in NaCl 0.9% 100 ML IV SCH (00:16)
[2025-02-03] MEDS: Melatonin 3 MG TAB PO PRN (03:30)
[2025-02-03 04:42] VITALS: TEMP 97.6
[2025-02-03 04:46] LABS: #Basophils 0.24 10x3/uL (0.0-0.2); #Eosinophils 0.81 10x3/uL (0.0-0.7); #Monocytes 0.79 10x3/uL (0.11-0.59); #Neutrophils 17.24 10x3/uL (1.40-6.50); %Basophils 1.1 % (0.0-1.0); %Eosinophils 3.7 % (0.0-10.0); %Lymphocytes 10.8 % (21.0-51.0); %Monocytes 3.6 % (0.0-10.0); %Neutrophils 79.7 % (42.0-75.0); Hematocrit 41.4 % (36.0-47.0); Hemoglobin 12.6 g/dL (12.0-16.0); Mean Corpuscular Hemoglobin 27.2 pg (27.0-31.0); Mean Corpuscular Volume 89.4 fL (78.0-98.0); Platelet Count 326 10x3/uL (130-400); Red Blood Cell (RBC) Count 4.63 mill/uL (4.20-5.40); White Blood Cell (WBC) Count 21.67 10x3/uL (4.8-10.8)
[2025-02-03 05:01] LABS: Anion Gap 17 mmol/L (10-20); BUN (Urea Nitrogen) 23 mg/dL (9.8-20.1); Calc. Creatinine Clearance 68 mL/min (70-130); Calcium 9.8 mg/dL (7.8-10.44); Carbon Dioxide 18 mmol/L (23-31); Chloride 110 mmol/L (98-107); Glucose 78 mg/dL (83-110); Potassium 4.1 mmol/L (3.5-5.1); Sodium 141 mmol/L (136-145); Vancomycin, Random 23.2 ug/mL (See Comment)
[2025-02-03 10:10] VITALS: BP 138/74
[2025-02-03] MEDS: Vancomycin HCl 1.25 GM in Sodium Chloride 0.9% 250 ML 250 ML IVPB SCH (12:01)
== END 2025-02-03 12:10 | DRG 602 ==
LOC: ERS 07:22 → SURG A 11:26 → 2NO 13:56
PROVIDERS: ADMIT Internal Medicine; ATTEND Family Medicine
PROC: 3E03329 Introduction of Other Anti-infective into Peripheral Vein, Percutaneous Approach (ICD-10-PCS; 2025-01-31)
PROC: 0T9B70Z Drainage of Bladder with Drainage Device, Via Natural or Artificial Opening (ICD-10-PCS; principal; 2025-02-02)
PROC: 3E02340 Introduction of Influenza Vaccine into Muscle, Percutaneous Approach (ICD-10-PCS; 2025-02-02)
DX: L03.116 Cellulitis of left lower limb (principal); G93.41 Metabolic encephalopathy; I42.9 Cardiomyopathy, unspecified; F03.93 Unspecified dementia, unspecified severity, with mood disturbance; I10 Essential (primary) hypertension; D75.839 Thrombocytosis, unspecified; I48.91 Unspecified atrial fibrillation; Z79.01 Long term (current) use of anticoagulants; Z88.0 Allergy status to penicillin; Z88.5 Allergy status to narcotic agent; D46.9 Myelodysplastic syndrome, unspecified; Z87.891 Personal history of nicotine dependence; Z79.899 Other long term (current) drug therapy; Z23 Encounter for immunization
CPT/HCPCS: 36415; 70450; 70551; 80048; 80053; 80061; 80202; 81001; 82805; 83605; 84145; 85025; 87040; 87077; 87081; 87086; 87324; 87449; 87505; 93005; 93306; 94760; 99285; J0696; J2060; J3373; J7030; J7050

== ENCOUNTER 2025-02-12 19:58 | Inpatient (IN) | payer MEDICARE ==
[2025-02-12 21:22] LABS: #Basophils 0.25 10x3/uL (0.0-0.2); #Eosinophils 0.69 10x3/uL (0.0-0.7); #Monocytes 0.71 10x3/uL (0.11-0.59); #Neutrophils 15.49 10x3/uL (1.40-6.50); %Basophils 1.3 % (0.0-1.0); %Eosinophils 3.5 % (0.0-10.0); %Lymphocytes 13.2 % (21.0-51.0); %Monocytes 3.6 % (0.0-10.0); %Neutrophils 77.4 % (42.0-75.0); Hematocrit 37.6 % (36.0-47.0); Hemoglobin 12.7 g/dL (12.0-16.0); Mean Corpuscular Hemoglobin 27.9 pg (27.0-31.0); Mean Corpuscular Volume 82.5 fL (78.0-98.0); Platelet Count 273 10x3/uL (130-400); Red Blood Cell (RBC) Count 4.56 mill/uL (4.20-5.40); White Blood Cell (WBC) Count 19.98 10x3/uL (4.8-10.8)
[2025-02-12 21:41] LABS: ALT (SGPT) 18 U/L (Less than 34); AST (SGOT) 22 U/L (11-34); Albumin 3.5 g/dL (3.1-4.5); Alkaline Phosphatase 125 U/L (40-110); Anion Gap 17 mmol/L (10-20); BUN (Urea Nitrogen) 24 mg/dL (9.8-20.1); Bilirubin, Total 0.7 mg/dL (0.3-1.2); Calc. Creatinine Clearance 0 mL/min (70-130); Calcium 9.5 mg/dL (7.8-10.44); Carbon Dioxide 28 mmol/L (23-31); Chloride 101 mmol/L (98-107); Globulin 2.1 g/dL (2.4-3.5); Glucose 102 mg/dL (83-110); Potassium 3.5 mmol/L (3.5-5.1); Sodium 142 mmol/L (136-145)
[2025-02-12] MEDS ORDERED: Ondansetron PF 4 MG/2 ML Vial IVP PRN (22:01)
[2025-02-12] MEDS ORDERED: Acetaminophen 500 MG TAB ONE (22:39)
[2025-02-12] MEDS ORDERED: cefTRIAXone (ROCEPHIN) 1 GM VIAL ONE (22:40)
[2025-02-13] MEDS: Bupropion 150 MG SR.TAB PO SCH ×2 (01:36→08:52)
[2025-02-13 02:01] VITALS: BMI 23.3
[2025-02-13] MEDS: Vancomycin 1.5 GM / NS 500ML VIAL-2-BAG IVPB SCH (02:42)
[2025-02-13 05:52] LABS: #Basophils 0.24 10x3/uL (0.0-0.2); #Eosinophils 0.86 10x3/uL (0.0-0.7); #Monocytes 0.62 10x3/uL (0.11-0.59); #Neutrophils 13.48 10x3/uL (1.40-6.50); %Basophils 1.3 % (0.0-1.0); %Eosinophils 4.8 % (0.0-10.0); %Lymphocytes 15.1 % (21.0-51.0); %Monocytes 3.4 % (0.0-10.0); %Neutrophils 74.6 % (42.0-75.0); Hematocrit 37.9 % (36.0-47.0); Hemoglobin 11.9 g/dL (12.0-16.0); Mean Corpuscular Hemoglobin 27.4 pg (27.0-31.0); Mean Corpuscular Volume 87.3 fL (78.0-98.0); Platelet Count 263 10x3/uL (130-400); Red Blood Cell (RBC) Count 4.34 mill/uL (4.20-5.40); White Blood Cell (WBC) Count 18.07 10x3/uL (4.8-10.8)
[2025-02-13] MEDS ORDERED: Clindamycin/D5W 900 MG in Premix 1 BAG IVPB SCH (06:00)
[2025-02-13 06:39] LABS: ALT (SGPT) 16 U/L (Less than 34); AST (SGOT) 20 U/L (11-34); Albumin 3.1 g/dL (3.1-4.5); Alkaline Phosphatase 112 U/L (40-110); Anion Gap 16 mmol/L (10-20); BUN (Urea Nitrogen) 22 mg/dL (9.8-20.1); Bilirubin, Total 0.5 mg/dL (0.3-1.2); Calc. Creatinine Clearance 53 mL/min (70-130); Calcium 9.0 mg/dL (7.8-10.44); Carbon Dioxide 26 mmol/L (23-31); Chloride 107 mmol/L (98-107); Globulin 1.9 g/dL (2.4-3.5); Glucose 90 mg/dL (83-110); Potassium 3.4 mmol/L (3.5-5.1); Sodium 146 mmol/L (136-145)
[2025-02-13] MEDS: Famotidine 20 MG TAB PO SCH (08:51)
[2025-02-13] MEDS: Ferrous Sulfate 325 MG TAB PO SCH (08:51)
[2025-02-13] MEDS: Spironolactone 25 MG TAB PO SCH (08:51)
[2025-02-13] MEDS: Cyanocobalamin (Vitamin B-12) 1,000 MCG TAB PO SCH (08:51)
[2025-02-13] MEDS: Apixaban 2.5 MG TAB PO SCH (08:52)
[2025-02-13] MEDS: Aspirin 81 mg Enteric Coated Tablet PO SCH (08:52)
[2025-02-13] MEDS: Pantoprazole 40 MG DR.TAB PO SCH (08:52)
[2025-02-13] MEDS: Acetaminophen 325 MG TAB PO PRN (08:52)
[2025-02-13] MEDS: Famotidine/PF 20 mg/2ml Vial SLOW IVP SCH (08:56)
[2025-02-13] MEDS ORDERED: Furosemide 40 MG TAB PO SCH (09:00)
[2025-02-13] MEDS ORDERED: Vancomycin 1 GM in Premix 1 BAG IVPB SCH (09:00)
[2025-02-13] MEDS: FLU (Fluad Triv) 25-26 (65UP)PF 45 MCG/0.5 ML Syringe IM ONE (09:56)
[2025-02-13] MEDS: Dapagliflozin Propanediol 10 MG TAB PO SCH (10:45)
[2025-02-13] MEDS: Vancomycin HCl 500 MG in NaCl 0.9% 100 ML IV SCH (11:35)
[2025-02-13] MEDS ORDERED: Iopamidol-370 76% 500 ML MDV (1 ML CHARGE) ONE (12:20)
[2025-02-13 16:17] LABS: Bacteria/HPF None Seen HPF (None Seen); CAUTI Indications for Culture Alt mental st,lethar; Glucose, Urine (Dipstick) Greater than 1000 mg/dL (Negative); Leukocyte Negative Leu/uL (Negative); Protein, Urine (Dipstick) Negative (Neg-Trace); RBC/HPF 0-3 HPF (0-3); Specific Gravity, Urine 1.011 (1.002-1.036); WBC/HPF 0-3 HPF (0-3)
[2025-02-13 16:20] LABS: Urine Culture Reflex No No
[2025-02-14 06:02] LABS: Vancomycin, Random 16.9 ug/mL (See Comment)
[2025-02-14] MEDS: Vancomycin HCl 1.25 GM in Sodium Chloride 0.9% 250 ML 250 ML IVPB SCH (11:48)
[2025-02-15 05:20] LABS: Vancomycin, Random 9.0 ug/mL (See Comment)
[2025-02-15 05:21] LABS: #Basophils 0.24 10x3/uL (0.0-0.2); #Eosinophils 0.53 10x3/uL (0.0-0.7); #Monocytes 1.06 10x3/uL (0.11-0.59); #Neutrophils 18.02 10x3/uL (1.40-6.50); %Basophils 1.1 % (0.0-1.0); %Eosinophils 2.4 % (0.0-10.0); %Lymphocytes 9.0 % (21.0-51.0); %Monocytes 4.8 % (0.0-10.0); %Neutrophils 81.6 % (42.0-75.0); Hematocrit 39.8 % (36.0-47.0); Hemoglobin 13.0 g/dL (12.0-16.0); Mean Corpuscular Hemoglobin 27.7 pg (27.0-31.0); Mean Corpuscular Volume 84.9 fL (78.0-98.0); Platelet Count 209 10x3/uL (130-400); Red Blood Cell (RBC) Count 4.69 mill/uL (4.20-5.40); White Blood Cell (WBC) Count 22.07 10x3/uL (4.8-10.8)
[2025-02-15 05:25] LABS: Anion Gap 13 mmol/L (10-20); BUN (Urea Nitrogen) 20 mg/dL (9.8-20.1); Calc. Creatinine Clearance 66 mL/min (70-130); Calcium 10.0 mg/dL (7.8-10.44); Carbon Dioxide 22 mmol/L (23-31); Chloride 104 mmol/L (98-107); Glucose 80 mg/dL (83-110); Magnesium 1.7 mg/dL (1.6-2.6); Potassium 5.2 mmol/L (3.5-5.1); Sodium 134 mmol/L (136-145)
[2025-02-15 10:07] LABS: Magnesium 1.7 mg/dL (1.6-2.6)
[2025-02-15] MEDS: Vancomycin HCl 750 MG in Sodium Chloride 0.9% 250 ML 250 ML IVPB SCH ×2 (11:11→23:12)
[2025-02-15 15:50] VITALS: BMI 23.3
[2025-02-16 05:33] LABS: Anion Gap 12 mmol/L (10-20); BUN (Urea Nitrogen) 23 mg/dL (9.8-20.1); Calc. Creatinine Clearance 57 mL/min (70-130); Calcium 9.8 mg/dL (7.8-10.44); Carbon Dioxide 25 mmol/L (23-31); Chloride 104 mmol/L (98-107); Glucose 84 mg/dL (83-110); Magnesium 1.8 mg/dL (1.6-2.6); Potassium 4.3 mmol/L (3.5-5.1); Sodium 137 mmol/L (136-145)
[2025-02-16 05:48] LABS: #Basophils 0.22 10x3/uL (0.0-0.2); #Eosinophils 0.77 10x3/uL (0.0-0.7); #Monocytes 0.63 10x3/uL (0.11-0.59); #Neutrophils 14.83 10x3/uL (1.40-6.50); %Basophils 1.2 % (0.0-1.0); %Eosinophils 4.2 % (0.0-10.0); %Lymphocytes 9.4 % (21.0-51.0); %Monocytes 3.4 % (0.0-10.0); %Neutrophils 80.7 % (42.0-75.0); Hematocrit 36.5 % (36.0-47.0); Hemoglobin 11.7 g/dL (12.0-16.0); Mean Corpuscular Hemoglobin 27.7 pg (27.0-31.0); Mean Corpuscular Volume 86.5 fL (78.0-98.0); Platelet Count 272 10x3/uL (130-400); Red Blood Cell (RBC) Count 4.22 mill/uL (4.20-5.40); White Blood Cell (WBC) Count 18.38 10x3/uL (4.8-10.8)
[2025-02-17 04:59] LABS: ALT (SGPT) 22 U/L (Less than 34); AST (SGOT) 26 U/L (11-34); Albumin 3.2 g/dL (3.1-4.5); Alkaline Phosphatase 132 U/L (40-110); Anion Gap 11 mmol/L (10-20); BUN (Urea Nitrogen) 25 mg/dL (9.8-20.1); Bilirubin, Total 0.9 mg/dL (0.3-1.2); Calc. Creatinine Clearance 59 mL/min (70-130); Calcium 9.5 mg/dL (7.8-10.44); Carbon Dioxide 24 mmol/L (23-31); Chloride 104 mmol/L (98-107); Globulin 1.9 g/dL (2.4-3.5); Glucose 74 mg/dL (83-110); Potassium 4.3 mmol/L (3.5-5.1); Sodium 135 mmol/L (136-145)
[2025-02-17 05:00] LABS: Vancomycin, Random 23.1 ug/mL (See Comment)
[2025-02-17 07:27] LABS: Hematocrit 34.8 % (36.0-47.0); Hemoglobin 10.9 g/dL (12.0-16.0); Mean Corpuscular Hemoglobin 27.1 pg (27.0-31.0); Mean Corpuscular Volume 86.6 fL (78.0-98.0); Platelet Count 329 10x3/uL (130-400); Red Blood Cell (RBC) Count 4.02 mill/uL (4.20-5.40); White Blood Cell (WBC) Count 19.34 10x3/uL (4.8-10.8)
[2025-02-17 07:49] LABS: Anisocytosis SLIGHT = 6-15 cells HPF (0-5); Burr Cells SLIGHT = 2-5 cells HPF (0-1); Ovalocytes SLIGHT = 2-5 cells HPF (0-1); Platelet Adequacy Comment Platelets Normal; Poikilocytosis SLIGHT = 6-15 cells HPF (0-5); Polychromasia SLIGHT = 2-3 cells HPF (0-2); Schistocytes SLIGHT = 2-5 cells HPF (0-1)
[2025-02-17] MEDS: QUEtiapine 25 MG TAB PO SCH (21:30)
[2025-02-18 04:38] LABS: Hematocrit 34.7 % (36.0-47.0); Hemoglobin 10.9 g/dL (12.0-16.0); Mean Corpuscular Hemoglobin 27.3 pg (27.0-31.0); Mean Corpuscular Volume 86.8 fL (78.0-98.0); Platelet Count 425 10x3/uL (130-400); Red Blood Cell (RBC) Count 4.00 mill/uL (4.20-5.40); White Blood Cell (WBC) Count 16.73 10x3/uL (4.8-10.8)
[2025-02-18 04:43] LABS: ALT (SGPT) 22 U/L (Less than 34); AST (SGOT) 22 U/L (11-34); Albumin 3.1 g/dL (3.1-4.5); Alkaline Phosphatase 133 U/L (40-110); Anion Gap 13 mmol/L (10-20); BUN (Urea Nitrogen) 28 mg/dL (9.8-20.1); Bilirubin, Total 0.7 mg/dL (0.3-1.2); Calc. Creatinine Clearance 54 mL/min (70-130); Calcium 10.1 mg/dL (7.8-10.44); Carbon Dioxide 23 mmol/L (23-31); Chloride 104 mmol/L (98-107); Globulin 2.1 g/dL (2.4-3.5); Glucose 86 mg/dL (83-110); Potassium 4.0 mmol/L (3.5-5.1); Sodium 136 mmol/L (136-145)
[2025-02-18 05:37] LABS: Anisocytosis SLIGHT = 6-15 cells HPF (0-5); Burr Cells MODERATE= 6-15 cells HPF (0-1); Giant Platelets 1.9 % (0-5); Ovalocytes MODERATE= 6-15 cells HPF (0-1); Platelet Adequacy Comment Platelets Normal; Poikilocytosis SLIGHT = 6-15 cells HPF (0-5); Polychromasia SLIGHT = 2-3 cells HPF (0-2); Schistocytes SLIGHT = 2-5 cells HPF (0-1); Smudge Cells 10.6 %
[2025-02-18] MEDS: Vancomycin 1.25 GM / NS 250 ML VIAL-2-BAG IVPB SCH (10:04)
[2025-02-18 13:20] VITALS: BP 109/65; TEMP 97.5
== END 2025-02-18 16:24 | DRG 602 ==
LOC: ERS 19:58 → MSONC 22:05 → OBSVTOIN 22:05
PROVIDERS: ADMIT Internal Medicine; ATTEND Internal Medicine
DX: L03.116 Cellulitis of left lower limb (principal); A41.9 Sepsis, unspecified organism; G93.41 Metabolic encephalopathy; I50.32 Chronic diastolic (congestive) heart failure; N39.0 Urinary tract infection, site not specified; E87.1 Hypo-osmolality and hyponatremia; I11.0 Hypertensive heart disease with heart failure; F32.A Depression, unspecified; I48.0 Paroxysmal atrial fibrillation; F41.9 Anxiety disorder, unspecified; D64.9 Anemia, unspecified; I25.10 Atherosclerotic heart disease of native coronary artery without angina pectoris; I25.5 Ischemic cardiomyopathy; I49.3 Ventricular premature depolarization; F41.1 Generalized anxiety disorder; E78.5 Hyperlipidemia, unspecified; Z79.01 Long term (current) use of anticoagulants; Z88.8 Allergy status to other drugs, medicaments and biological substances; Z88.0 Allergy status to penicillin; Z88.1 Allergy status to other antibiotic agents; Z86.73 Personal history of transient ischemic attack (TIA), and cerebral infarction without residual deficits; Z98.41 Cataract extraction status, right eye
CPT/HCPCS: 36415; 75635; 76705; 80048; 80053; 80202; 81001; 83605; 83735; 84145; 85025; 87040; 93005; 93010; 93923; 93970; 96374; 97139; J0692; J0696; J1308; J3373; J7030; J7050; Q9967